=== PATIENT | female | born 1970 | race Caucasian/White ===

== ENCOUNTER → 2024-01-03 08:07 | Outpatient (BNVA) | payer OTHER, SELFPAY | PROVIDERS: Family Provider Family Medicine; Visit Provider Family Medicine Adult Medicine | DX: Z86.79 Personal history of other diseases of the circulatory system (principal); F17.200 Nicotine dependence, unspecified, uncomplicated; J43.9 Emphysema, unspecified | CPT/HCPCS: 80053; 80061; 84443; 85025 ==

== ENCOUNTER 2024-01-29 07:37 | Outpatient (CLI) | payer OTHER, SELFPAY ==
--- NOTE | 2024-01-29 08:00 | CT_ITS ---
WS: [id number] LDCT LUNG CANCER SCREENING HISTORY: smoker TECHNIQUE: Axial imaging performed from the apices to 1 cm below the costophrenic angles. Coronal and sagittal reformats are submitted with axial MIP series. All CT scans at [facility] use at least one of these dose optimization techniques: automated exposure control; mA and/or kV adjustment per patient size (includes targeted exams where dose is matched to clinical indication); or iterativ e reconstruction. DLP: 52.87 mGy.cm DIvol: Mean CTDIvol: 1.10 (mGy) COMPARISON: None available. Diagnostic quality: Satisfactory Lungs: Moderate pulmonary hyperexpansion with centrilobular emphysema. There are numerous abnormaliti es within the lungs. Spiculated mass RIGHT apex 9 mm. Consolidation LEFT hilum 10.0 x 11.0 mm. This needs to be further evaluated for possible neoplasm. RIGHT middle lobe subpleural 7 mm nodule. There are additional smaller pleural and subpleural nodules noted bilaterally. No pneumonia. Heart: Normal size heart with no pericardial effusion.. Other findings: Mild atherosclerosis thoracic aorta. Pulmonary artery size is normal. Mild coronary a rtery calcification. No definite mediastinal or hilar adenopathy. No axillary lymph nodes. Osteopenia . CT/CT lung screening [id number] IMPRESSION: LUNG-RADS: 4A-Probably Suspicious FOLLOW UP: PET/CT recommended OTHER FINDINGS (S MODIFIER): None. Several concerning nodules including the RIGHT apical and LEFT hilar nodules ne ed to be further evaluate this time for possible neoplasm.
== END 2024-01-29 07:38 | disposition home or self-care (01) ==
PROVIDERS: Family Provider Family Medicine; PCP Family Medicine Adult Medicine; Visit Provider Family Medicine Adult Medicine
DX: Z12.2 Encounter for screening for malignant neoplasm of respiratory organs (principal); J43.9 Emphysema, unspecified; F17.200 Nicotine dependence, unspecified, uncomplicated
CPT/HCPCS: 71271

== ENCOUNTER 2024-02-26 13:43 | Outpatient (CLI) | payer OTHER, SELFPAY ==
--- NOTE | 2024-02-26 13:48 | PETR_ITS ---
PROCEDURE INFORMATION: Exam: PET/CT Skull Base to Mid-thigh Exam date and time: 02/26/2024 2:17 PM Age: 53 years old Clinical indication: Abnormal findings; Lung nodules; Additional info: Abnormal CT lungs, electronic order not attached to account, put in as verbal LABS AND CLINICAL REPORTS: Glucose: 96 mg/dl Treatment strategy for malignancy (PET staging): Initial Staging (PI) TECHNIQUE: Imaging protocol: Following at least four-hour fasting and following the injection of radiopharmaceutical, low dose CT images were obtained. Then, PET images were obtained. Attenuation corrected images were constructed using the CT scan. Fused images of PET and CT were reviewed. The standardized uptake values (SUV) reported below are maximum values within a region of interest, expressed in gm/ml. Exam includes orbital meatal line to mid-thigh. Radiopharmaceutical: 11.19 mCi F-18 FDG (Fluorodeoxyglucose), IV. Time of imaging post radiopharmaceutical administration: 1 hour Injection site: Right hand COMPARISON: CT lung screening [id number] 01/29/2024 8:03 AM FINDINGS: Brain: Visualized brain has normal physiologic uptake. Pharynx: No abnormal uptake. Larynx: No abnormal uptake. Lungs, pleura and trachea: A solid right apical 9 mm nodule on series 3, image 54 demonstrates an SUV max 2.5. A 5 mm solid appearing nodular density adjacent to the pleural surface of the posterior right upper lobe is not definitively identified on the prior CT and is not radiotracer avid on series 3, image 68, possibly representing atelectasis. A pleural based solid nodule in the right middle lobe measuring 0.7 x 0.5 cm on series 3, image 85 is likely unchanged in size allowing for differences in slice thickness between the current and previous exam, SUV max 1.1. A solid left perihilar nodule in the region of the fissure is unchanged in size with spiculated margins measuring approximately 1.9 x 1.3 cm on series 3, image 87, SUV max 5.1. Heart: Normal physiologic uptake. Mediastinal space: No abnormal uptake. Liver: No abnormal uptake. Gallbladder and biliary ducts: No abnormal uptake. Pancreas: No abnormal uptake. Spleen: No abnormal uptake. Adrenal glands: No abnormal uptake. Kidneys and ureters: Normal physiologic uptake. Stomach and bowel: There is probable physiologic or inflammatory uptake in the region of the distal rectum, SUV max 6.2. Assessment of the rectum in this region is limited by nondistention. Vasculature: No abnormal uptake. There are diffuse atherosclerotic calcifications. Lymph nodes: Mildly prominent precarinal, aortopulmonary window and subcarinal lymph nodes are noted with elevated uptake, SUV max 3.8 on series 3, image 74 with the greatest uptake in a precarinal lymph node measuring 1.5 x 0.7 cm on image 74. A 1.1 cm aortopulmonary window lymph node on image 74 demonstrates an SUV max 3.5. An approximately 1 cm subcarinal lymph node on image 76 demonstrates an SUV max 3.6. Skeleton: No abnormal uptake. A mixed lucent and sclerotic circumscribed benign-appearing non radiotracer avid lesion in the medial left iliac bone on series 3, image 190 measures 1.2 x 1.0 cm.There is mild diffuse vertebral body spondylosis. Soft tissues: No abnormal uptake in the visualized head, neck, chest, abdomen, pelvis, and extremities. In the subcutaneous fat of the posterior base of the neck a non radiotracer avid ovoid circumscribed 3.5 x 2.5 cm structure adjacent to the skin surface is noted with a density measurement suggestive of fluid likely representing a benign sebaceous cyst. METRICS: Mediastinal blood pool: SUV max 2.5, SUV mean 2.2 PET/PET skull to thigh INIT [id number] IMPRESSION: 1. Radiotracer avid 9 mm right apical (SUV max 2.5) and left perihilar (SUV max 5.1) pulmonary nodules are noted concerning for malignancy. 2. Additional small right-sided pulmonary nodules are noted without significant uptake. Assessment of small nodules can be limited by PET-CT. 3. Radiotracer avid mediastinal lymph nodes are noted which may be malignant in etiology. Infectious or inflammatory changes may also account for this uptake. 4. Probable physiologic or inflammatory uptake in the region of the distal rectum. A malignant etiology is less likely. 5. Additional nonurgent findings as detailed above.
== END 2024-02-26 13:44 | disposition home or self-care (01) ==
LOC: RAD 13:43
PROVIDERS: Family Provider Family Medicine; PCP Family Medicine Adult Medicine; Visit Provider Family Medicine Adult Medicine
DX: R91.8 Other nonspecific abnormal finding of lung field (principal); R93.89 Abnormal findings on diagnostic imaging of other specified body structures
CPT/HCPCS: 78815; A9552